=== PATIENT | male | born 2000 | race Caucasian/White ===

== ENCOUNTER 2020-09-25 20:04 | Emergency (ER) | payer SELFPAY ==
[~2020-09-25] VITALS: Ht 170.2 cm; Wt 62.1 kg
--- NOTE | 2020-09-25 20:10 | NUR ---
ED Nurse Note: Pt ambulated to ED from home, states his friends pointed out that his L knee is swollen, denies pain or injury. Pt is A&OX4, VSS. ERMD at bedside. Knees are bilaterally the samev in appearance, no swelling noted.
--- NOTE | 2020-09-25 20:38 | Emergency Room Report ---
History of Present Illness General Chief Complaint: Lower Extremity Injury Source: Patient Present Illness HPI 20-year-old male no past medical history with 30 minutes of left lower extremity swelling. Patient says that he has multiple first-degree relatives who have history of blood clots. Patient says that 30 minutes ago he began to notice left medial thigh swelling. Denies pain. No recent long car rides or plane rides. No recent surgeries. No IV drug use. Does not smoke. Does not take any medications. No fevers, chills, chest pain, palpitation, shortness of breath, lightheadedness, back pain, abdominal pain, cough, nausea, vomiting, diarrhea, dysuria. Allergies: Uncoded Allergies: PENICILLIN (Allergy, Mild, 09/25/20) COVID-19 Screening Contact w/high risk pt: No Experienced COVID-19 symptoms?: No COVID-19 Testing performed RETAIL ASSISTANT: No Nursing Documentation-[facility] Past Medical History: No Stated History Review of Systems All Other Systems: negative except mentioned in HPI Physical Exam Vital Signs Date Time Temp Pulse Resp B/P (MAP) Pulse Ox O2 Delivery O2 Flow Rate FiO2 09/25/20 20:04 98.2 117 24 151/83 (105) 97 Room Air Sp02 EP Interpretation: reviewed, normal General Appearance: no apparent distress, alert, non-toxic Head: normocephalic, atraumatic Eyes: bilateral eye normal inspection, bilateral eye PERRL ENT: hearing grossly normal, normal pharynx, no angioedema, normal voice Neck: full range of motion, supple/symm/no masses Respiratory: chest non-tender, lungs clear, normal breath sounds, speaking full sentences Cardiovascular #1: regular rate, rhythm, no edema Cardiovascular #2: 2+ carotid (R), 2+ carotid (L), 2+ radial (R), 2+ radial (L), 2+ dorsalis pedis (R), 2+ dorsalis pedis (L) Gastrointestinal: normal bowel sounds, non tender, soft, non-distended, no guarding, no rebound Rectal: deferred Genitourinary: normal inspection, no CVA tenderness Musculoskeletal: back normal, normal range of motion, gait/station normal, non- tender, other - Very mild swelling of the left quadriceps muscle. No popliteal fossa tenderness. No other lower extremity edema Neurologic: alert, motor strength/tone normal, oriented x3, sensory intact, responsive, speech normal Psychiatric: judgement/insight normal, memory normal, mood/affect normal, no suicidal/homicidal ideation Lymphatic: no adenopathy Medical Decision Making Diagnostic Impression: Primary Impression: Leg swelling Additional Impression: Muscle strain ER Course 20-year-old male here with atraumatic left thigh swelling. Patient's medial left thigh was slightly larger in appearance than the right side. Patient however had intact pulses and no distal swelling. Ultrasound was performed of the left lower extremity which was negative for any deep venous thrombosis. However the field technical support consultant did note that the patient's left femoral vein appeared slightly smaller in appearance than the right femoral vein but there is no evidence of blood clot or any other acute abnormalities. This may be anatomical variation versus positioning. No need for any acute intervention at this time. The patient was told to follow-up with his primary care provider. Discharged in stable condition. Last Vital Signs Date Time Temp Pulse Resp B/P (MAP) Pulse Ox O2 Delivery O2 Flow Rate FiO2 09/25/20 20:04 98.2 117 24 151/83 (105) 97 Room Air Phuc Chadwick M.D. Sep 25, 2020 20:38
--- NOTE | 2020-09-25 20:59 | NUR ---
ED Nurse Note: US AT BEDSIDE
[2020-09-25 21:40] VITALS: BP 140/78
--- NOTE | 2020-09-25 21:40 | NUR ---
ER DISCHARGE NOTE: Patient is cleared to be discharged per ERMD, pt is aox4, on room air, with stable vital signs. pt was given dc instructions, pt was able to verbalize understanding, pt id band removed. pt is able to ambulate with steady gait. pt took all belongings.
--- NOTE | 2020-09-25 21:58 | Diagnostic Imaging Report ---
INDICATION: Pain and swelling TECHNIQUE: Real-time sonographic imaging of the bilateral common femoral, superficial femoral and popliteal veins is performed utilizing intermittent compression. The study is supplemented with color flow imaging and duplex Doppler during spontaneous flow, Valsalva and calf augmentation. COMPARISON: FINDINGS: Normal compressibility is demonstrated from the common femoral vein to the popliteal vein bilaterally. There is normal response to Valsalva and augmentation. Normal spontaneous phasic flow is noted. IMPRESSION: No evidence of deep venous thrombosis.
== END 2020-09-25 21:40 | disposition home or self-care (01) ==
LOC: EMR 20:29
DX: T14.8XXA Other injury of unspecified body region, initial encounter (principal); R22.42 Localized swelling, mass and lump, left lower limb; Z88.0 Allergy status to penicillin; X58.XXXA Exposure to other specified factors, initial encounter; Y92.9 Unspecified place or not applicable
CPT/HCPCS: 93971; 99283